=== PATIENT | female | born 1980 | race African-American/Black ===

== ENCOUNTER → 2021-07-25 | Outpatient (CLI) | payer OTHER ==
--- NOTE | 2021-07-25 17:46 | RAD ---
EXAM: XR LUMBAR SPINE 2-3V, XR FEET 2 VIEWS 07/25/2021 9:54 AM CLINICAL INDICATION: Lateral foot pain and low back pain. Disability determination COMPARISON: None TECHNIQUE: AP and lateral view of the right and left foot. AP and lateral view of the lumbar spine. FINDINGS: Feet: No acute fracture. Alignment is normal. Joint spaces are maintained. Bone mineralization is nor mal. No soft tissue abnormality. Lumbar spine: There are 5 nonrib bearing lumbar vertebral bodies. No acute fracture. Alignment is nor mal. Disc spaces are maintained. Minimal osteophytes at L2-L3 and L3-L4. No significant facet arthros is. IMPRESSION: 1. No acute osseous abnormality or degenerative changes of the feet. 2. No acute osseous abnormality of the lumbar spine. Minimal degenerative disc disease. Electronically signed by: Lisa Ramirez MD (07/25/2021 5:43 PM) [id number]
== END ==
LOC: RAD 09:34
PROVIDERS: ATTEND Anesthesiology Pain Medicine
DX: Z02.71 Encounter for disability determination (principal); M54.50 Low back pain, unspecified; M79.671 Pain in right foot; M79.672 Pain in left foot
CPT/HCPCS: 72100; 73620-50